=== PATIENT | female | born 1990 | race Caucasian/White ===

== ENCOUNTER 2023-01-01 08:08 | Emergency (ER) | payer OTHER ==
--- NOTE | 2023-01-01 08:09 | ERPHSYRPT ---
- History of Present Illness Time Seen by Provider: 01/01/23 08:09 Source: patient Exam Limitations: no limitations Physician History: This is a 32-year-old white female who 5 days ago noticed itching and a rash forming left lateral neck and lower earlobe. She did not notice any type of insect bite. She denies pain. Her primary complaint is the fact that the rash is there and it itches. She has not noticed any blistering. Patient states that she is breast-feeding. She has never had a thing like this before. She has no shortness of breath or wheezing type of symptoms. Quality: itchy Severity: mild (To moderate) Location: neck (Left lateral aspect), other (Left lower ear) Possible Causes: no cause identified Modifying Factors: Improves With: calamine lotion Associated Symptoms: change in skin texture (Course like sandpaper), No blisters, No difficulty breathing, No fever, No sore throat Allergies/Adverse Reactions: No Known Drug Allergies Allergy (Unverified 01/01/23 08:29) Travel Risk - International Travel Have you traveled outside of the country in past 3 weeks: No - Coronavirus Screening Are you exhibiting any of the following symptoms?: No Close contact with a COVID-19 positive Pt in past 14-21 Days: No - Review of Systems Constitutional: No Symptoms Eyes: No Symptoms Ears, Nose, & Throat: No Symptoms Respiratory: No Symptoms Cardiac: No Symptoms Abdominal/Gastrointestinal: No Symptoms Genitourinary Symptoms: No Symptoms Musculoskeletal: No Symptoms Skin: Rash (course patches of skin rash that is present on the left lateral neck and the lower ear on the left side. No blistering) Neurological: No Symptoms Psychological: No Symptoms Endocrine: No Symptoms Hematologic/Lymphatic: No Symptoms Immunological/Allergic: No Symptoms All Other Systems: Reviewed and Negative - Past Medical History Pertinent Past Medical History: No - Past Surgical History Past Surgical History: No - Nursing Vital Signs Nursing Vital Signs: Initial Vital Signs Temperature 97.8 F 01/01/23 08:30 Pulse Rate 78 01/01/23 08:30 Respiratory Rate 18 01/01/23 08:30 Blood Pressure 112/74 01/01/23 08:30 O2 Sat by Pulse Oximetry 97 01/01/23 08:30 Pain Scale Pain Intensity 0 - Physical Exam General Appearance: no apparent distress, alert, anxiety Eye Exam: PERRL/EOMI, eyes nml inspection Ears, Nose, Throat Exam: normal ENT inspection, moist mucous membranes Neck Exam: other (3 patches of irregular bordered rough textured rash without blisters left lateral neck and single similar skin lesion left lower ear) Respiratory Exam: normal breath sounds, lungs clear, airway intact, No chest tenderness, No respiratory distress Cardiovascular Exam: regular rate/rhythm, normal heart sounds, normal peripheral pulses Gastrointestinal/Abdomen Exam: No tenderness Pelvic Exam: not done Rectal Exam: not done Back Exam: normal inspection, normal range of motion, No CVA tenderness Extremity Exam: normal inspection, normal range of motion, pelvis stable Neurologic Exam: alert, oriented x 3, cooperative, engineering vice president II-XII nml as tested, normal mood/affect, nml cerebellar function, nml station & gait, sensation nml Skin Exam: normal color, warm, dry Lymphatic Exam: No adenopathy SpO2 Interpretation: normal O2 Delivery: Room Air - Course Nursing assessment & vital signs reviewed: Yes - Progress Progress: unchanged, re-examined Progress Note: 01/01/23 09:00 In some ways this patient's rash appears to be nonspecific. The fact that there are patches of coarse rash that has the appearance of a shingles rash makes me suspicious of this possibility. The patient and I reviewed the medications and the side effects as well as whether or not the medications can be used during breast-feeding. These medications include prednisone, Benadryl, Pepcid and acyclovir. The plan is for the patient to use Pepcid, Benadryl and prednisone first. She is to use the prednisone twice a day and is not to breast-feed 4 hours after taking her prednisone. I will write a prescription for acyclovir in case the above treatment is not effective and patient's symptoms worsen. Together, we agreed with this plan Counseled pt/family regarding: lab results, diagnosis, need for follow-up Medical Desision Making - Diagnostic Testing Diagnostic Testing: Diagnostic tests were ordered,analyzed, and reviewed by me and used in my medical decision making for this patient. Radiologic studies (if ordered) were read by me initially then discussed with the radiologist . No additional diagnostics test or studies necessary - Risk of complications Minimal Risk: Minimal risk of morbidity - Departure Departure Disposition: Home Clinical Impression: Skin rash Condition: Stable Critical Care Time: No Additional Instructions: Keep rash site clean and dry. Take the medication as prescribed. Do not breast-feed for 4 hours after taking the prednisone medication as discussed. Do not fill the acyclovir unless your symptoms are worsening despite treatment. Follow-up with your primary care physician as an outpatient. Use Benadryl 25 mg orally 3 times a day for 5 days. Prescriptions: Acyclovir 800 mg [Acyclovir] 800 mg PO 5XD #35 tablet Prednisone 10 mg [Deltasone 10 mg] 10 mg PO BID #10 tablet Famotidine 20 mg [Pepcid 20 MG] 20 mg PO DAILY #5 tablet
[2023-01-01 08:39] VITALS: BP 112/74; PULSE 78; O2SAT 99
== END 2023-01-01 09:22 | disposition home or self-care (01) ==
LOC: ED 08:08
DX: R21 Rash and other nonspecific skin eruption (principal); Z79.52 Long term (current) use of systemic steroids
CPT/HCPCS: 99281